=== PATIENT | female | born 1945 | race Caucasian/White ===

== ENCOUNTER 2018-09-08 15:01 | Inpatient (IN) | payer MEDICARE, OTHER ==
[~2018-09-08] VITALS: Ht 162.6 cm; Wt 42.6 kg
[2018-09-08 14:00] VITALS: BP 109/67
[2018-09-08 15:16] VITALS: BP 175/47
[2018-09-08 15:28] LABS: BASOPHILS 0.1 % (0-2); EOSINOPHILS 0.3 % (0-7); HEMATOCRIT 47.2 % (36.0-48.0); HEMOGLOBIN 15.6 g/dL (12-16); IMMATURE GRANULOCYTES 1.8 % (0-5); LYMPHOCYTES 7.6 % (15-50); MCH 28.7 pg (26.0-34.0); MCHC 33.1 g/dL (31.0-37.0); MCV 86.9 fL (80.0-100.0); MEAN PLATELET VOLUME 9.9 fL (7.4-10.4); MONOCYTES 5.9 % (2-11); NEUTROPHILS 84.3 % (40-80); PLATELET COUNT 227 10x3/uL (130-400); RBC 5.43 10x6/uL (4.00-5.40); RDW 16.7 % (11.5-14.5); WBC 16.9 10x3/uL (4.8-10.8)
[2018-09-08 15:39] LABS: APTT 24.4 SECONDS (22.8-39.4); INR 0.95 (0.85-1.17); PROTIME 12.2 SECONDS (11.6-15.0)
[2018-09-08 15:41] LABS: ALBUMIN 3.9 g/dL (3.4-5.0); ALKALINE PHOSPHATASE 70 U/L (46-116); ALT (SGPT) 24 U/L (10-68); BILIRUBIN - TOTAL 0.78 mg/dL (0.2-1.3); CALC OSMOLALITY 285 mosm/kg (275-300); CALCIUM 9.1 mg/dL (8.5-10.1); CARBON DIOXIDE 25.9 mmol/L (21.0-32.0); CHLORIDE - SERUM 103 mmol/L (98-107); CREATININE - SERUM 1.2 mg/dL (0.6-1.3); GLUCOSE 133 mg/dL (74-106); POTASSIUM - SERUM 4.1 mmol/L (3.5-5.1); PROTEIN - SERUM 7.4 g/dL (6.4-8.2); SODIUM 140 mmol/L (136-145); UREA NITROGEN 26 mg/dL (7-18); eGFR NON AFRICAN AMERICAN 47 mL/min (90-120)
[2018-09-08 15:54] LABS: CKMB 2.2 U/L (0.0-3.6); CREATINE KINASE 93 UL (21-215); PRO BNP 681 pg/mL (0-125); TROPONIN-I 0.033 ng/mL (0.000-0.060)
[2018-09-08 16:00] VITALS: BP 168/58
[2018-09-08 17:01] VITALS: BP 168/127
[2018-09-08 18:00] VITALS: BP 129/46
[2018-09-08 20:00] VITALS: BP 153/70
--- NOTE | 2018-09-08 20:00 | NUR ---
PT CAME TO FLOOR FROM ER VIA WHEELCHAIR. REVIEWED HOME MEDS AND HISTORY. 2L/NC. PT REFUSED TELEMETRY AND SCD'S. IV INFUSING NS @ 50. PT RECEIVING UPDRAFT TREATMENT. ASSESSMENT COMPLETE PER FLOW-SHEET. NO OTHER NEEDS. WILL CONTINUE TO MONITOR.
[2018-09-08] MEDS ORDERED: BAYER CHEWABLE81 MG PO (20:29)
[2018-09-08] MEDS ORDERED: ADVAIR 250/501 DISK INH (20:30)
[2018-09-08] MEDS ORDERED: ALBUTEROL SULF8.5 GM INH (20:32)
[2018-09-09] VITALS: BP 142/63
[2018-09-09 02:43] VITALS: BP 153/70; BMI 16.1
[2018-09-09 06:05] LABS: BASOPHILS 0.1 % (0-2); EOSINOPHILS 0 % (0-7); HEMATOCRIT 42.9 % (36.0-48.0); HEMOGLOBIN 13.6 g/dL (12-16); IMMATURE GRANULOCYTES 2.1 % (0-5); LYMPHOCYTES 7.5 % (15-50); MCH 27.4 pg (26.0-34.0); MCHC 31.7 g/dL (31.0-37.0); MCV 86.3 fL (80.0-100.0); MONOCYTES 3.4 % (2-11); NEUTROPHILS 86.9 % (40-80); PLATELET COUNT 217 10x3/uL (130-400); RBC 4.97 10x6/uL (4.00-5.40); RDW 16.2 % (11.5-14.5)
[2018-09-09 06:13] LABS: WBC 9.2 10x3/uL (4.8-10.8)
[2018-09-09 06:28] LABS: CALCIUM 8.1 mg/dL (8.5-10.1); CARBON DIOXIDE 22.1 mmol/L (21.0-32.0); POTASSIUM - SERUM 4.1 mmol/L (3.5-5.1)
--- NOTE | 2018-09-09 08:20 | NUR ---
PT RESTING EYES CLOSED NO SIGNS OF DISTRESS NOTED, EASY RISE AND FALL OF CHEST WILL CONTINUE TO MONITOR CL IN REACH
[2018-09-09 08:23] VITALS: BMI 16.1
[2018-09-09 08:26] VITALS: BP 136/68
[2018-09-09 12:46] VITALS: BP 115/65
[2018-09-09 13:10] VITALS: Ht 162.6 cm; Wt 42.6 kg
--- NOTE | 2018-09-09 17:03 | NUR ---
I have reviewed this patient and I concur with the Shift Assessment completed by the Licensed Practical Nurse today this shift.
[2018-09-09 17:52] VITALS: BP 139/43
--- NOTE | 2018-09-09 19:30 | NUR ---
PT ALERT AND ORIENTED WATCHING TV WHEN ENTERING THE ROOM. DENIES PAIN OR DISCOMFORT AT THIS TIME. LUNGS PRESENT WITH DIMINISHED SOUNDS IN BILATERAL LOWER LOBES. HAS LEFT FOREARM IV THAT IS PATENT AND INFUSING NS. REFUSES SCD'S AND TELEMETRY. WEARS 2L NC PRN. DENIES FURTHER NEEDS. CALL LIGHT IN HAND.
[2018-09-09 20:00] VITALS: BP 147/60
--- NOTE | 2018-09-09 21:00 | NUR ---
AMBULATED UNIT WITH WALKER. TOLERATED WELL.
[2018-09-10] VITALS: BP 136/54
--- NOTE | 2018-09-10 02:55 | NUR ---
I have reviewed this patient and I concur with the Shift Assessment completed by the Licensed Practical Nurse today this shift.
[2018-09-10 04:00] VITALS: BP 130/58
[2018-09-10 06:41] LABS: BASOPHILS 0 % (0-2); EOSINOPHILS 0 % (0-7); HEMATOCRIT 38.7 % (36.0-48.0); HEMOGLOBIN 12.3 g/dL (12-16); IMMATURE GRANULOCYTES 0.9 % (0-5); MCH 27.6 pg (26.0-34.0); MCHC 31.8 g/dL (31.0-37.0); MCV 86.8 fL (80.0-100.0); MONOCYTES 2.5 % (2-11); NEUTROPHILS 93.6 % (40-80); PLATELET COUNT 232 10x3/uL (130-400); RBC 4.46 10x6/uL (4.00-5.40); RDW 16.2 % (11.5-14.5)
[2018-09-10 06:44] LABS: WBC 15.2 10x3/uL (4.8-10.8)
[2018-09-10 07:00] LABS: CALC OSMOLALITY 291 mosm/kg (275-300); CARBON DIOXIDE 22.6 mmol/L (21.0-32.0); CHLORIDE - SERUM 111 mmol/L (98-107); CREATININE - SERUM 0.8 mg/dL (0.6-1.3); GLUCOSE 117 mg/dL (74-106); POTASSIUM - SERUM 4.1 mmol/L (3.5-5.1); SODIUM 144 mmol/L (136-145); UREA NITROGEN 24 mg/dL (7-18); eGFR NON AFRICAN AMERICAN 75 mL/min (90-120)
[2018-09-10 09:17] VITALS: BP 156/70
--- NOTE | 2018-09-10 10:00 | NUR ---
PT AAOX4 USING BEDSIDE COMMODE AT THIS TIME, NO NEEDS EXPRESSED WILL CONTINUE TO MONITOR CL IN REACH
[2018-09-10 13:07] VITALS: BP 148/58
[2018-09-10 17:00] VITALS: BP 157/62
--- NOTE | 2018-09-10 18:30 | NUR ---
I have reviewed this patient and I concur with the Shift Assessment completed by the Licensed Practical Nurse today this shift.
--- NOTE | 2018-09-10 19:30 | NUR ---
PT ALERT AND ORIENTED. SON AND GRANDDAUGHTER IN ROOM. DENIES PAIN OR DISCOMFORT. PT STATES SHE DOES NOT LIKE THE STEROIDS BUT VERBALIZE UNDERSTANDING OF IMPORTANCE OF STEROIDS. DENIES FURTHER ISSUES AT THIS TIME. CALL LIGHT IN REACH. BED LOCKED AND LOWERED. PT ON ROOM AIR, NOT WEARING OXYGEN AT THIS TIME AND O2 SATURATION WNL. DOOR OPEN AND CLOSE TO NURSES STATION. CPOC.
[2018-09-10 20:44] VITALS: BP 151/68
[2018-09-11 05:14] LABS: BASOPHILS 0 % (0-2); EOSINOPHILS 0.1 % (0-7); HEMATOCRIT 39.1 % (36.0-48.0); HEMOGLOBIN 12.7 g/dL (12-16); IMMATURE GRANULOCYTES 1.3 % (0-5); LYMPHOCYTES 2.5 % (15-50); MCH 27.8 pg (26.0-34.0); MCHC 32.5 g/dL (31.0-37.0); MCV 85.6 fL (80.0-100.0); MEAN PLATELET VOLUME 9.5 fL (7.4-10.4); MONOCYTES 3.2 % (2-11); NEUTROPHILS 92.9 % (40-80); PLATELET COUNT 222 10x3/uL (130-400); RBC 4.57 10x6/uL (4.00-5.40); RDW 16.1 % (11.5-14.5); WBC 14.6 10x3/uL (4.8-10.8)
[2018-09-11 05:28] LABS: CALC OSMOLALITY 277 mosm/kg (275-300); CALCIUM 7.8 mg/dL (8.5-10.1); CARBON DIOXIDE 23.7 mmol/L (21.0-32.0); CHLORIDE - SERUM 106 mmol/L (98-107); CREATININE - SERUM 0.7 mg/dL (0.6-1.3); GLUCOSE 105 mg/dL (74-106); POTASSIUM - SERUM 4.3 mmol/L (3.5-5.1); SODIUM 138 mmol/L (136-145); UREA NITROGEN 18 mg/dL (7-18); eGFR NON AFRICAN AMERICAN 87 mL/min (90-120)
[2018-09-11 05:42] VITALS: BP 140/74
--- NOTE | 2018-09-11 07:17 | NUR ---
RESTING WELL AT THIS TIME EASILY TO AROUSED WHEN NAME IS CALLED. RESP EVEN AND UNLABORED WITH NO DISTRESS NOTED. CAN EXPRESS NEEDS AND WANTS. NO C/O NOTED OR VOICED. ASSESSEMENT COMPLETED. C/L IN REACH AT BEDSIDE.
[2018-09-11 08:43] VITALS: BP 153/67
--- NOTE | 2018-09-11 11:19 | NUR ---
I have reviewed this patient and I concur with the Shift Assessment completed by the Licensed Practical Nurse today this shift.
[2018-09-11] MEDS ORDERED: SINGULAIR10 MG PO (12:58)
[2018-09-11] MEDS ORDERED: GUAIFENESI100 MG/5 M PO (12:58)
[2018-09-11] MEDS ORDERED: TESSALON PERLE100 MG PO (12:59)
[2018-09-11] MEDS ORDERED: PREDNISONE20 MG PO (13:02)
[2018-09-11 13:10] VITALS: BP 144/72
--- NOTE | 2018-09-11 13:39 | MORECARE ---
CASE MANAGEMENT DISCHARGE SUMMARY PATIENT: JONATHAN ZAVALA UNIT: [id number] ADM DATE: 09/08/18 AGE: 73 : 47 SEX: F ROOM/BED: D.2216 AUTHOR: SUSI,DOC PHYSICIAN: REFERRING PHYSICIAN: ADORE MARIN MD DATE OF SERVICE: 09/11/18 Discharge Plan Patient Name: JONATHAN ZAVALA Facility: [facility]:[place] : 1945 Planned Disposition: Home or Self Care Anticipated Discharge Date: Discharge Date: Expected LOS: Initial Reviewer: [email or web address] Initial Review Date: 09/08/2018 Generated: 09/11/18 2:39 pm Comments DCP- Discharge Planning Updated by [email or web address]: Estefania Nath on 09/11/18 12:[address] Patient Name: JONATHAN ZAVALA Admission Status: ER Accout number: [id number] Admission Date: 09-08-2018 : 1945 Admission Diagnosis: Attending: ADORE MARIN Current LOS: 3 Anticipated DC Date: Planned Disposition: Home or Self Care Primary Insurance: MEDICARE A & B Discharge Planning Comments: CM met with patient to complete initial dc planning assessment. CM educated patient on the CM role and verbal consent given by patient to complete assessment. Patient lives at home where she is independent with her care. At discharge patient plans to return home and feels this is a safe discharge. Her adult son lives with her and will be her lifter/driver home. CM discussed availability of home health, rehab services, and medical equipment. Patient stated that she has a walker and a nebulizer at home. She could not remember the company's name, but she is happy with it. IMM signed and given. SALVADOR for the DME signed. Patient denied known discharge needs at this time. CM will continue to follow and will assist as needed with dc plans/needs. Civil Rights Investigator: Estefania Nath DCPIA - Discharge Planning Initial Assessment Updated by [email or web address]: Estefania Nath on 09/11/18 1:35 pm * Is the patient Alert and Oriented? Yes * How many steps to enter\exit or inside your home? * PCP TANIA * Pharmacy [facility] * Preadmission Environment Home with Family * ADLs Independent * Equipment Nebulizer Walker * List name and contact numbers for known caregivers / representatives who currently or will assist patient after discharge: MIGUELINA ZAVALA (SON) [phone] * Verbal permission to speak to the caregivers and representatives has been obtained from the patient. N/A * Community resources currently utilized None * Additional services required to return to the preadmission environment? No * Can the patient safely return to the preadmission environment? Yes * Has this patient been hospitalized within the prior 30 days at any hospital? No Coverage Notice Reviewer: [email or web address] Nath Notice Issued Date-Time: 09/11/2018 13:30 Notice Type: IM Discharge Notice Notice Delivered To: Patient Relationship to Patient: Handyperson Name: Delivery Method: - Beena Days: Prior Verbal Notification: Recipient Understood Notice: Yes Recipient Signature: Yes Med Rec Note Co-signed by Attending: Coverage Notice Comment: Reviewer: [id number] Nath Notice Issued Date-Time: 09/11/2018 13:30 Notice Type: Patient Choice Letter Notice Delivered To: Patient Relationship to Patient: Handyperson Name: Delivery Method: - Beena Days: Prior Verbal Notification: Recipient Understood Notice: Recipient Signature: Yes Med Rec Note Co-signed by Attending: Coverage Notice Comment: dme for nebulizer Patient Name: JONATHAN ZAVALA Page [phone] at 1339 All edits/amendments must be made on the electronic document DICTATION DATE: 09/11/181338 BROKE MAN: LYRIC 09/11/18 1339 RPT#: [id number] [place] DATE: STATUS: ADM IN [facility] [address] [place] [address] END OF REPORT
--- NOTE | 2018-09-12 12:31 | MORECARE ---
CASE MANAGEMENT DISCHARGE SUMMARY PATIENT: JONATHAN ZAVALA UNIT: [id number] ADM DATE: 09/08/18 AGE: 73 : 47 SEX: F ROOM/BED: D.2216 AUTHOR: SUSI,DOC PHYSICIAN: REFERRING PHYSICIAN: ADORE MARIN MD DATE OF SERVICE: 09/12/18 Discharge Plan Patient Name: JONATHAN ZAVALA Facility: [facility]:[place] : 1945 Planned Disposition: Home or Self Care Anticipated Discharge Date: Discharge Date: 09/11/2018 Expected LOS: 0 Initial Reviewer: [email or web address] Initial Review Date: 09/08/2018 Generated: 09/12/18 1:31 pm Comments DCP- Discharge Planning Updated by [email or web address]: Estefania Nath on 09/11/18 12:[address] Patient Name: JONATHAN ZAVALA Admission Status: ER Accout number: [id number] Admission Date: 09-08-2018 : 1945 Admission Diagnosis: Attending: ADORE MARIN Current LOS: 3 Anticipated DC Date: Planned Disposition: Home or Self Care Primary Insurance: MEDICARE A & B Discharge Planning Comments: CM met with patient to complete initial dc planning assessment. CM educated patient on the CM role and verbal consent given by patient to complete assessment. Patient lives at home where she is independent with her care. At discharge patient plans to return home and feels this is a safe discharge. Her adult son lives with her and will be her newspaper delivery driver home. CM discussed availability of home health, rehab services, and medical equipment. Patient stated that she has a walker and a nebulizer at home. She could not remember the company's name, but she is happy with it. IMM signed and given. SALVADOR for the DME signed. Patient denied known discharge needs at this time. CM will continue to follow and will assist as needed with dc plans/needs. Recovery Analyst: Estefania Nath DCPIA - Discharge Planning Initial Assessment Updated by [email or web address]: Estefania Nath on 09/11/18 1:35 pm * Is the patient Alert and Oriented? Yes * How many steps to enter\exit or inside your home? * PCP TANIA * Pharmacy [facility] * Preadmission Environment Home with Family * ADLs Independent * Equipment Nebulizer Walker * List name and contact numbers for known caregivers / representatives who currently or will assist patient after discharge: MIGUELINA ZAVALA (SON) [phone] * Verbal permission to speak to the caregivers and representatives has been obtained from the patient. N/A * Community resources currently utilized None * Additional services required to return to the preadmission environment? No * Can the patient safely return to the preadmission environment? Yes * Has this patient been hospitalized within the prior 30 days at any hospital? No Coverage Notice Reviewer: [id number] Nath Notice Issued Date-Time: 09/11/2018 13:30 Notice Type: IM Discharge Notice Notice Delivered To: Patient Relationship to Patient: Medical Office Manager Name: Delivery Method: - Beena Days: Prior Verbal Notification: Recipient Understood Notice: Yes Recipient Signature: Yes Med Rec Note Co-signed by Attending: Coverage Notice Comment: Reviewer: [id number] Nath Notice Issued Date-Time: 09/11/2018 13:30 Notice Type: Patient Choice Letter Notice Delivered To: Patient Relationship to Patient: Medical Office Manager Name: Delivery Method: - Beena Days: Prior Verbal Notification: Recipient Understood Notice: Recipient Signature: Yes Med Rec Note Co-signed by Attending: Coverage Notice Comment: dme for nebulizer Last DP export: 09/11/18 12:39 p Patient Name: JONATHAN ZAVAAL Page [phone] at 1231 All edits/amendments must be made on the electronic document DICTATION DATE: 09/12/18 1231 BEHAVIORAL THERAPY COORDINATOR: LYRIC 09/12/18 1231 RPT#: [id number] DC DATE:09/11/18 STATUS: DIS IN [facility] [address] [place] [address] END OF REPORT
== END 2018-09-11 17:51 | disposition home or self-care (01) | DRG 192 ==
LOC: D.ER 15:01 → D.MS 17:29
PROVIDERS: Family Medicine; ADMIT Family Medicine; ATTEND Family Medicine
DX: J44.1 Chronic obstructive pulmonary disease with (acute) exacerbation (principal); M54.31 Sciatica, right side

== ENCOUNTER 2018-10-09 16:05 | Inpatient (IN) | payer MEDICARE, OTHER ==
[~2018-10-09] VITALS: Ht 162.6 cm; Wt 37.2 kg
[~2018-10-09 16:05] MED LIST: ADVAIR 250/501 DISK INH; ALBUTEROL SULF8.5 GM INH; BAYER CHEWABLE81 MG PO; GUAIFENESI100 MG/5 M PO; PREDNISONE20 MG PO; SINGULAIR10 MG PO; TESSALON PERLE100 MG PO
[2018-10-09 17:42] LABS: BASOPHILS 0.2 % (0-2); EOSINOPHILS 0.2 % (0-7); HEMATOCRIT 47.2 % (36.0-48.0); HEMOGLOBIN 15.8 g/dL (12-16); IMMATURE GRANULOCYTES 2.6 % (0-5); LYMPHOCYTES 8.4 % (15-50); MCH 28.6 pg (26.0-34.0); MCHC 33.5 g/dL (31.0-37.0); MCV 85.4 fL (80.0-100.0); MEAN PLATELET VOLUME 9.7 fL (7.4-10.4); MONOCYTES 7.1 % (2-11); NEUTROPHILS 81.5 % (40-80); PLATELET COUNT 260 10x3/uL (130-400); RBC 5.53 10x6/uL (4.00-5.40); RDW 17.3 % (11.5-14.5); WBC 12.6 10x3/uL (4.8-10.8)
[2018-10-09 17:54] LABS: APTT 28.2 SECONDS (22.8-39.4); INR 0.98 (0.85-1.17); PROTIME 12.5 SECONDS (11.6-15.0)
[2018-10-09 18:03] LABS: ALBUMIN 3.3 g/dL (3.4-5.0); ALKALINE PHOSPHATASE 195 U/L (46-116); ALT (SGPT) 22 U/L (10-68); BILIRUBIN - TOTAL 0.93 mg/dL (0.2-1.3); CALC OSMOLALITY 276 mosm/kg (275-300); CALCIUM 9.6 mg/dL (8.5-10.1); CARBON DIOXIDE 21.4 mmol/L (21.0-32.0); CHLORIDE - SERUM 102 mmol/L (98-107); CREATININE - SERUM 0.9 mg/dL (0.6-1.3); POTASSIUM - SERUM 4.1 mmol/L (3.5-5.1); PROTEIN - SERUM 7.2 g/dL (6.4-8.2); SODIUM 139 mmol/L (136-145); UREA NITROGEN 16 mg/dL (7-18); eGFR NON AFRICAN AMERICAN 65 mL/min (90-120)
[2018-10-09 18:14] LABS: CKMB 3.4 U/L (0.0-3.6); CREATINE KINASE 43 UL (21-215); PRO BNP 471 pg/mL (0-125); TROPONIN-I 0.038 ng/mL (0.000-0.060)
[2018-10-09 18:37] LABS: GLUCOSE 65 mg/dL (74-106)
--- NOTE | 2018-10-09 20:16 | NUR ---
PT SITTING UP IN BED WITH EYES OPEN, TV ON, FAMILY AT BEDSIDE. DENIES NEEDS AT THIS TIME. RESPIRATIONS 27 AT REST AND SITTING UP AT HIGH BENITEZ'S. O2 SAT 95% ORA.
[2018-10-09 20:18] VITALS: BP 146/58
[2018-10-09 21:46] VITALS: BP 144/66
--- NOTE | 2018-10-09 22:02 | NUR ---
REPORT CALLED TO ERENDIRA MENDOZA AT THIS TIME.
--- NOTE | 2018-10-09 22:09 | NUR ---
ROCEPHIN INFUSTION COMPLETE AT THIS TIME.
--- NOTE | 2018-10-09 22:30 | NUR ---
PT WHEELED UP IN WHEEL CHAIR BY ER STAFF. VSS, NOTICED PT HAVING DIFFICULT TIME CATCHING BREATH. HAD PT SIT UP STRAIGHT WITH PURSED LIP BREATHING, PT ABLE TO ANSWER ASSESMENT QUESTIONS. CL IN REACH, BED IN LOWEST POSITION. BEDSIDE CAMODE PROVIDED. CONT WITH POC.
[2018-10-09 22:38] VITALS: BP 137/71; BMI 14.1
--- NOTE | 2018-10-09 23:30 | NUR ---
TELE MONITORING NOTIFIED PT NEEDS TELE. NONE AVAILABLE, PT IS ON WAITING LIST FOR NEXT AVAILABLE MONITOR. CONT WITH POC.
[2018-10-10 04:55] VITALS: BP 133/70
--- NOTE | 2018-10-10 08:00 | NUR ---
PT SITTING UP IN BED, DENIES ANY NEEDS AT THIS TIME. SHIFT ASSESSMENT PERFORMED. WILL CONT TO FOLLOW POC
[2018-10-10 08:18] VITALS: BP 130/78
[2018-10-10 09:00] LABS: HEMATOCRIT 41.5 % (36.0-48.0); HEMOGLOBIN 13.8 g/dL (12-16); MCH 27.9 pg (26.0-34.0); MCHC 33.3 g/dL (31.0-37.0); MCV 83.8 fL (80.0-100.0); PLATELET COUNT 283 10x3/uL (130-400); RBC 4.95 10x6/uL (4.00-5.40)
[2018-10-10 09:02] LABS: WBC 6.6 10x3/uL (4.8-10.8)
[2018-10-10 09:17] LABS: ALBUMIN 3.1 g/dL (3.4-5.0); ALKALINE PHOSPHATASE 178 U/L (46-116); ALT (SGPT) 19 U/L (10-68); BILIRUBIN - TOTAL 0.65 mg/dL (0.2-1.3); CALCIUM 9.5 mg/dL (8.5-10.1); CARBON DIOXIDE 21.4 mmol/L (21.0-32.0); CHLORIDE - SERUM 107 mmol/L (98-107); CREATININE - SERUM 0.7 mg/dL (0.6-1.3); POTASSIUM - SERUM 4.6 mmol/L (3.5-5.1); PROTEIN - SERUM 5.9 g/dL (6.4-8.2); SODIUM 145 mmol/L (136-145); UREA NITROGEN 18 mg/dL (7-18); eGFR NON AFRICAN AMERICAN 87 mL/min (90-120)
[2018-10-10 09:19] LABS: CALC OSMOLALITY 297 mosm/kg (275-300); GLUCOSE 219 mg/dL (74-106)
[2018-10-10 10:28] LABS: LYMPHOCYTES 10 % (15-50); MONOCYTES 4 % (2-11); NEUTROPHILS 83 % (40-80); PLATELET ESTIMATE NORMAL
[2018-10-10 10:29] LABS: ANISOCYTOSIS OCC
[2018-10-10 12:00] VITALS: BP 115/60
--- NOTE | 2018-10-10 12:00 | NUR ---
PT ALERTED NURSE THAT SHE HAS A SORE ON HER BUTTOCKS. UPON CLOSER EXAMINATION, PT HAS 2 SMALL SORES RIGHT ABOVE HER COCCYX. SORES CLEANSED WITH NS AND MEPILEX APPLIED. DENIES ANY FURTHER NEEDS AT THIS TIME, WILL CONT TO FOLLOW POC
[2018-10-10 13:38] VITALS: Ht 162.6 cm; Wt 37.2 kg
[2018-10-10 15:06] VITALS: BP 130/68
--- NOTE | 2018-10-10 17:00 | NUR ---
PT SITTING UP EATING DINNER. DENIES ANY NEEDS AT THIS TIME, WILL CONT TO FOLLOW POC
--- NOTE | 2018-10-10 18:33 | MORECARE ---
CASE MANAGEMENT DISCHARGE SUMMARY PATIENT: JONATHAN LOPEZ UNIT: [id number] ADM DATE: 10/09/18 AGE: 73 : 47 SEX: F ROOM/BED: D.1213 AUTHOR: SUKHJINDER GOLDMAN PHYSICIAN: REFERRING PHYSICIAN: ADORE MARIN MD DATE OF SERVICE: 10/10/18 Discharge Plan Patient Name: JONATHAN LOPEZ [facility] [facility] 1945 Planned Disposition: Home Anticipated Discharge Date: Discharge Date: Expected LOS: Initial Reviewer: [email or web address] Initial Review Date: 10/09/2018 Generated: 10/10/18 7:33 pm DCPIA - Discharge Planning Initial Assessment Updated by [email or web address]: Dominique Adams on 10/10/18 6:33 pm * Is the patient Alert and Oriented? Yes * How many steps to enter\exit or inside your home? * PCP preethi * Pharmacy [facility] * Preadmission Environment Home with Family * ADLs Independent * Other Equipment walker, bsc, nebulizer * List name and contact numbers for known caregivers / representatives who currently or will assist patient after discharge: Lencho Lopez - son - [phone] * Verbal permission to speak to the caregivers and representatives has been obtained from the patient. Yes * Community resources currently utilized None * Additional services required to return to the preadmission environment? No * Can the patient safely return to the preadmission environment? Yes * Has this patient been hospitalized within the prior 30 days at any hospital? No Patient Name: JONATHAN LOPEZ Page [id number] at 1833 All edits/amendments must be made on the electronic document DICTATION DATE: 10/10/181831 TURN OPERATOR: LYRIC 10/10/181831 RPT#: [id number] [place] DATE: STATUS: ADM IN [facility] [address] [place] [address] END OF REPORT
--- NOTE | 2018-10-10 18:42 | MORECARE ---
CASE MANAGEMENT DISCHARGE SUMMARY PATIENT: JONATHAN LOPEZ UNIT: [id number] ADM DATE: 10/09/18 AGE: 73 : 47 SEX: F ROOM/BED: D.1213 AUTHOR: SUSI,DOC PHYSICIAN: REFERRING PHYSICIAN: ADORE MARIN MD DATE OF SERVICE: 10/10/18 Discharge Plan Patient Name: JONATHAN LOPEZ Facility: [facility]:[place] : 1945 Planned Disposition: Home Anticipated Discharge Date: Discharge Date: Expected LOS: Initial Reviewer: [email or web address] Initial Review Date: 10/09/2018 Generated: 10/10/18 7:42 pm Comments DCP- Discharge Planning Updated by [email or web address]: Dominique Adams on 10/10/18 5:[address] Patient Name: JONATHAN LOPEZ Admission Status: ER Accout number: [id number] Admission Date: 10-09-2018 : 1945 Admission Diagnosis: Attending: ADORE MARIN Current LOS: 1 Anticipated DC Date: Planned Disposition: Home Primary Insurance: MEDICARE A & B Discharge Planning Comments: CM met with patient at bedside after explaining CM role and obtaining verbal consent. Patient lives at home with her son and plans to return there upon discharge. Patient feels this would be a safe discharge. CM discussed availability / needs of home health and medical equipment. Patient states she has BSC, walker and Nebulizer. Patient states that she doesn't have any current home health services. Patient denies any discharge needs at this time. Patient states she will have her son drive her home upon discharge. CM will continue to follow and assist as needed with discharge planning / needs. Patient Care Provider: Dominique Adams DCPIA - Discharge Planning Initial Assessment Updated by [email or web address]: Dominique Adams on 10/10/18 6:33 pm * Is the patient Alert and Oriented? Yes * How many steps to enter\exit or inside your home? * PCP preethi * Pharmacy [facility] * Preadmission Environment Home with Family * ADLs Independent * Other Equipment walker, bsc, nebulizer * List name and contact numbers for known caregivers / representatives who currently or will assist patient after discharge: Lencho Lopez - son - [phone] * Verbal permission to speak to the caregivers and representatives has been obtained from the patient. Yes * Community resources currently utilized None * Additional services required to return to the preadmission environment? No * Can the patient safely return to the preadmission environment? Yes * Has this patient been hospitalized within the prior 30 days at any hospital? No Last DP export: 10/10/18 5:33 p Patient Name: JONATHAN LOPEZ Page [phone] at 1842 All edits/amendments must be made on the electronic document DICTATION DATE: 10/10/181841 PIERCING MILL OPERATOR: LYRIC 10/10/181841 RPT#: [id number] [place] DATE: STATUS: ADM IN [facility] [address] [place] [address] END OF REPORT
--- NOTE | 2018-10-10 19:40 | NUR ---
EVENING ROUNDS COMPLETE. PT IS SITTING UP IN BED. A&O X4, NO SIGNS OF DISTRESS. PT DENIES ANY ACUTE PAIN OR NEEDS AT THIS TIME. CL IN REACH, BED IN LOWEST POSITION. CONT WITH POC.
[2018-10-10 21:00] VITALS: BP 152/72
--- NOTE | 2018-10-11 01:06 | NUR ---
HOOKED PT UP TO TELE. RUNNING 92 SINUS RHYTHM. CONT WITH POC.
--- NOTE | 2018-10-11 08:07 | NUR ---
ROUNDING DONE WITH PATIENT REPORTING NO NEEDS AT THIS TIME. GLASSES ON. ON 2L PER NC. ON HEART MONITOR SHOWING ST, HR 128. BSC AT BEDSIDE. LEFT WRIST PIV SEEN WITH SALINE LOCK. ON LOVENOX. PATIENT HAS A SLIGHT COUGH. CALL LIGHT AT SIDE IN USE.
[2018-10-11 08:11] VITALS: BP 130/57
--- NOTE | 2018-10-11 11:25 | NUR ---
DENIES NEEDS, REQUEST HOT COFFEE. GIVEN.
[2018-10-11 12:21] VITALS: BP 128/65
--- NOTE | 2018-10-11 13:14 | NUR ---
HEART MONITOR TAKEN OFF ORDERED AND TURNED IN.
--- NOTE | 2018-10-11 13:19 | NUR ---
REFUSED BATH AND LINEN CHANGE.
--- NOTE | 2018-10-11 14:52 | NUR ---
READING A JONH VEGA BOOK. DENIES NEEDS AT THIS TIME.
[2018-10-11 15:46] VITALS: BP 121/68
[2018-10-11 20:49] VITALS: BP 127/67
--- NOTE | 2018-10-11 21:30 | NUR ---
PT REFUSES SCD'S AT THIS TIME. CONT WITH POC.
[2018-10-12 00:06] VITALS: BP 129/65
[2018-10-12 06:16] VITALS: BP 128/65
[2018-10-12 06:32] LABS: CALC OSMOLALITY 291 mosm/kg (275-300); CALCIUM 8.7 mg/dL (8.5-10.1); CARBON DIOXIDE 25.3 mmol/L (21.0-32.0); CHLORIDE - SERUM 110 mmol/L (98-107); CREATININE - SERUM 0.7 mg/dL (0.6-1.3); GLUCOSE 122 mg/dL (74-106); POTASSIUM - SERUM 4.2 mmol/L (3.5-5.1); SODIUM 145 mmol/L (136-145); UREA NITROGEN 18 mg/dL (7-18); eGFR NON AFRICAN AMERICAN 87 mL/min (90-120)
[2018-10-12 06:43] LABS: BASOPHILS 0.1 % (0-2); EOSINOPHILS 0 % (0-7); HEMATOCRIT 34.7 % (36.0-48.0); HEMOGLOBIN 11.5 g/dL (12-16); IMMATURE GRANULOCYTES 0.7 % (0-5); MCH 28.1 pg (26.0-34.0); MCHC 33.1 g/dL (31.0-37.0); MCV 84.8 fL (80.0-100.0); MEAN PLATELET VOLUME 10.4 fL (7.4-10.4); MONOCYTES 3.2 % (2-11); PLATELET COUNT 304 10x3/uL (130-400); RBC 4.09 10x6/uL (4.00-5.40); RDW 17.3 % (11.5-14.5); WBC 19.6 10x3/uL (4.8-10.8)
--- NOTE | 2018-10-12 07:21 | NUR ---
ROUNDING DONE WITH PATIENT RESTING WITH EYES CLOSED. RESP EVEN. ON ROOM AIR AT THIS TIME. BSC AND WALKER AT BEDSIDE. LEFT WRIST SALINE LOCK. GLASSES AT BEDSIDE. WILL MONITOR.
[2018-10-12 08:29] VITALS: BP 103/50
--- NOTE | 2018-10-12 09:21 | NUR ---
NUTRITION F/U CHART REVIEWED, PT VISIT. PT WITH GOOD INTAKE RECENT MEALS. REPORTS SHE IS DRINKING MOST OF ENSURE WITH MEALS WELL. WILL CONTINUE TO PROVIDE DIET, ENSURE. MONITOR PO INTAKE. RD FOLLOWING
[2018-10-12 11:03] VITALS: BP 109/50
[2018-10-12] MEDS ORDERED: PREDNISONE20 MG PO (12:38)
[2018-10-12] MEDS ORDERED: CEFUROXIME500 MG PO (12:38)
[2018-10-12 16:02] VITALS: BP 135/59
--- NOTE | 2018-10-12 16:25 | NUR ---
VERBAL AND WRITTEN DISCHARGE INSTRUCTIONS GIVEN TO PATIENT AND SON. SALINE LOCK REMOVED WITH CATH TIP INTACT. DISCHARGED HOME WITH HER GLASSES ON VIA WHEELCHAIR.
--- NOTE | 2018-10-12 16:40 | MORECARE ---
CASE MANAGEMENT DISCHARGE SUMMARY PATIENT: JONATHAN LOPEZ UNIT: [id number] ADM DATE: 10/09/18 AGE: 73 : 47 SEX: F ROOM/BED: D.1213 AUTHOR: SUSIDOC PHYSICIAN: REFERRING PHYSICIAN: ADORE MARIN MD DATE OF SERVICE: 10/12/18 Discharge Plan Patient Name: JONATHAN LOPEZ Facility: [facility]:[place] : 1945 Planned Disposition: Home Anticipated Discharge Date: Discharge Date: 10/12/2018 Expected LOS: Initial Reviewer: [email or web address] Initial Review Date: 10/09/2018 Generated: 10/12/18 5:40 pm Comments DCP- Discharge Planning Updated by [email or web address]: Dominique Adams on 10/12/18 3:[address] Patient Name: JONATHAN LOPEZ Encounter No: [id number] : 1945 Primary Insurance: MEDICARE A & B Anticipated DC Date: Planned Disposition: Home External Planned Provider: : DCP follow-up note: Patient and family in agreement with discharge plan. Patient refused any home health services at this time. No changes to plan. Case management will follow and assist as needed. Dominique Adams Appended by Dominique Adams on 10/12/2018 16:30 CDT: d/c imm signed 10/12/18 @ 1315 DCP- Discharge Planning Updated by [email or web address]: Dominique Adams on 10/10/18 5:[address] Patient Name: JONATHAN LOPEZ Admission Status: ER Accout number: [id number] Admission Date: 10-09-2018 : 1945 Admission Diagnosis: Attending: ADORE MARIN Current LOS: 1 Anticipated DC Date: Planned Disposition: Home Primary Insurance: MEDICARE A & B Discharge Planning Comments: CM met with patient at bedside after explaining CM role and obtaining verbal consent. Patient lives at home with her son and plans to return there upon discharge. Patient feels this would be a safe discharge. CM discussed availability / needs of home health and medical equipment. Patient states she has BSC, walker and Nebulizer. Patient states that she doesn't have any current home health services. Patient denies any discharge needs at this time. Patient states she will have her son drive her home upon discharge. CM will continue to follow and assist as needed with discharge planning / needs. Quality Control Auditor: Dominique CALABRESE - Discharge Planning Initial Assessment Updated by [email or web address]: Dominique Adams on 10/10/18 6:33 pm * Is the patient Alert and Oriented? Yes * How many steps to enter\exit or inside your home? * PCP preethi * Pharmacy [facility] * Preadmission Environment Home with Family * ADLs Independent * Other Equipment walker, bsc, nebulizer * List name and contact numbers for known caregivers / representatives who currently or will assist patient after discharge: Lencho Lopez - son - [phone] * Verbal permission to speak to the caregivers and representatives has been obtained from the patient. Yes * Community resources currently utilized None * Additional services required to return to the preadmission environment? No * Can the patient safely return to the preadmission environment? Yes * Has this patient been hospitalized within the prior 30 days at any hospital? No Coverage Notice Reviewer: [email or web address] - Dominique Adams Notice Issued Date-Time: 10/12/2018 13:15 Notice Type: IM Discharge Notice Notice Delivered To: Patient Relationship to Patient: Self Paraprofessional Education Assistant Name: Delivery Method: HAND - Hand Delivered Beena Days: Prior Verbal Notification: Recipient Understood Notice: Yes Recipient Signature: Yes Med Rec Note Co-signed by Attending: Coverage Notice Comment: Last DP export: 10/10/18 5:42 p Patient Name: JONATHAN LOPEZ Page [phone] at 1640 All edits/amendments must be made on the electronic document DICTATION DATE: 10/12/18 1640 CRYSTAL GROWER: LYRIC 10/12/18 1640 RPT#: [id number] DC DATE:10/12/18 STATUS: DIS IN [facility] [address] [place] [address] END OF REPORT
--- NOTE | 2018-10-12 16:58 | MORECARE ---
CASE MANAGEMENT DISCHARGE SUMMARY PATIENT: JONATHAN LOPEZ UNIT: [id number] ADM DATE: 10/09/18 AGE: 73 : [birth year] SEX: F ROOM/BED: D.1213 AUTHOR: SUSIDOC PHYSICIAN: REFERRING PHYSICIAN: ADORE MARIN MD DATE OF SERVICE: 10/12/18 Discharge Plan Patient Name: JONATHAN LOPEZ Facility: [facility]:[place] : 1945 Planned Disposition: Home Anticipated Discharge Date: Discharge Date: 10/12/2018 Expected LOS: Initial Reviewer: [email or web address] Initial Review Date: 10/09/2018 Generated: 10/12/18 5:57 pm Comments DCP- Discharge Planning Updated by [email or web address]: Dominique Adams on 10/12/18 3:[address] Patient Name: JONATHAN LOPEZ Encounter No: [id number] : 1945 Primary Insurance: MEDICARE A & B Anticipated DC Date: Planned Disposition: Home External Planned Provider: : DCP follow-up note: Patient and family in agreement with discharge plan. Patient refused any home health services at this time. No changes to plan. Case management will follow and assist as needed. Dominique Adams Appended by Dominique Adams on 10/12/2018 16:30 CDT: d/c imm signed 10/12/18 @ 1315 DCP- Discharge Planning Updated by [email or web address]: Dominique Adams on 10/10/18 5:[address] Patient Name: JONATHAN LOPEZ Admission Status: ER Accout number: [id number] Admission Date: 10-09-2018 : 1945 Admission Diagnosis: Attending: ADORE MARIN Current LOS: 1 Anticipated DC Date: Planned Disposition: Home Primary Insurance: MEDICARE A & B Discharge Planning Comments: CM met with patient at bedside after explaining CM role and obtaining verbal consent. Patient lives at home with her son and plans to return there upon discharge. Patient feels this would be a safe discharge. CM discussed availability / needs of home health and medical equipment. Patient states she has BSC, walker and Nebulizer. Patient states that she doesn't have any current home health services. Patient denies any discharge needs at this time. Patient states she will have her son drive her home upon discharge. CM will continue to follow and assist as needed with discharge planning / needs. Spinner Operator: Dominique CALABRESE - Discharge Planning Initial Assessment Updated by [email or web address]: Dominique Adams on 10/10/18 6:33 pm * Is the patient Alert and Oriented? Yes * How many steps to enter\exit or inside your home? * PCP [facility] * Pharmacy [facility] * Preadmission Environment Home with Family * ADLs Independent * Other Equipment walker, bsc, nebulizer * List name and contact numbers for known caregivers / representatives who currently or will assist patient after discharge: Lencho Lopez - son - [phone] * Verbal permission to speak to the caregivers and representatives has been obtained from the patient. Yes * Community resources currently utilized None * Additional services required to return to the preadmission environment? No * Can the patient safely return to the preadmission environment? Yes * Has this patient been hospitalized within the prior 30 days at any hospital? No Coverage Notice Reviewer: [email or web address] - Dominique Adams Notice Issued Date-Time: 10/12/2018 13:15 Notice Type: IM Discharge Notice Notice Delivered To: Patient Relationship to Patient: Self Superintendent Colliery Name: Delivery Method: HAND - Hand Delivered Beena Days: Prior Verbal Notification: Recipient Understood Notice: Yes Recipient Signature: Yes Med Rec Note Co-signed by Attending: Coverage Notice Comment: Last DP export: 10/12/18 3:40 p Patient Name: JONATHAN LOPEZ Page [id number] at 1658 All edits/amendments must be made on the electronic document DICTATION DATE: 10/12/181656 LINE HELPER: LYRIC 10/12/181656 RPT#: [id number] DC DATE:10/12/18 STATUS: DIS IN [facility] [address] [place] [address] END OF REPORT
== END 2018-10-12 16:27 | disposition home or self-care (01) | DRG 190 ==
LOC: D.ER 16:05 → D.M3 21:26
PROVIDERS: Family Medicine; ADMIT Family Medicine; ATTEND Family Medicine
DX: J44.1 Chronic obstructive pulmonary disease with (acute) exacerbation (principal); E43 Unspecified severe protein-calorie malnutrition; Z68.1 Body mass index [BMI] 19.9 or less, adult; M54.31 Sciatica, right side; L89.152 Pressure ulcer of sacral region, stage 2